=== PATIENT | female | born 1990 | race African-American/Black ===

== ENCOUNTER 2017-01-19 08:37 | Day surgery (SDC) | payer OTHER ==
[2017-01-19 09:38] LABS: PROTHROMBIN TIME 12.9 SEC (11.4-15.4)
[2017-01-19 09:39] LABS: PARTIAL THROMBOPLASTIN TIME 33.9 SEC (23.5-35.8)
--- NOTE | 2017-01-19 11:28 | RADIOLOGY REPORT (SQ) ---
EXAM DESCRIPTION: LUMBAR PUNCTURE; FLUORO/NEEDLE PLACEMENT/SPINE COMPLETED DATE/TIME: 01/19/2017 11:08 am REASON FOR STUDY: HEADACHE, BENIGN INTRACRANIAL HYPERTENSION R51 HEADACHE G93.2 BENIGN INTRACRANIA L HYPERTENSION COMPARISON: None. FLUOROSCOPY TIME: 37 seconds 2 images saved to PACS. TECHNIQUE: Fluoroscopic guided lumbar puncture. LIMITATIONS: None. PROCEDURE: After written consent and assessment were obtained, the patient was brought into the fluo roscopy room and placed prone on the table. The patient's lower back was prepped in a sterile fashio n and an entry site was selected under live fluoroscopic guidance. The entry site was anesthetized wi th 1% lidocaine. A 20 gauge gauge needle was advanced through the skin and into the thecal sac at the level of L3-L4. After approximately 11 ml was drained, the needle was removed and a sterile bandage was placed of the site. Specimens were sent to the lab for testing. A fluoroscopic spot image was s aved to PACS confirming level access. FINDINGS: Clear CSF. Opening pressure 29. Closing pressure 20. IMPRESSION: Lumbar puncture under fluoroscopy. No immediate complication. COMMENT: Patient medication list reviewed: Yes- Quality ID# [id number]:Eligible professional attests to doc umenting in the medical record they obtained, updated, or reviewed the patient's current medications. . Quality ID 145: Final reports for procedures using fluoroscopy that document radiation exposure mimi bryant, or exposure time and number of fluorographic images (if radiation exposure indices are not avail able) TECHNICAL DOCUMENTATION: JOB ID: [id number] [employer]- All Rights Reserved
[2017-01-19 12:11] LABS: APPEARANCE ALL TUBES CLEAR; RBC DILUENT USED NONE USED; RBC DILUTION FACTOR 1; RBC SIDE 1 0; RBC SIDE 2 0; TOTAL RBC SQUARES COUNTED 225
[2017-01-19 12:12] LABS: WHITE BLOOD CELL,CSF 0 /uL (0-5)
[2017-01-19 12:40] LABS: GLUCOSE,CSF 53 mg/dL (40-70)
[2017-01-19 14:33] VITALS: BP 116/69
[2017-01-20 15:39] LABS: ALBUMIN SERUM 4.1 g/dL (3.5-5.5); CSF IGG INDEX 0.5 (0.0-0.7); IGG SYNTHESIS RATE CSF -5.5 mg/day (-9.9 TO +3.3); IGG/ALBUMIN RATIO CSF 0.22 (0.00-0.25); IMMUNOGLOBULIN G CSF 2.2 mg/dL (0.0-8.6)
== END 2017-01-19 13:00 | disposition home or self-care (01) ==
LOC: RAD 08:37
PROVIDERS: ATTEND Specialist
PROC: 009U3ZX Drainage of Spinal Canal, Percutaneous Approach, Diagnostic (ICD-10-PCS; principal; 2017-01-19)
DX: G93.2 Benign intracranial hypertension (principal); F17.210 Nicotine dependence, cigarettes, uncomplicated
CPT/HCPCS: 36415; 62270; 77003; 82784; 82945; 84157; 85610; 85730; 87070; 87205; 89050

== ENCOUNTER 2018-06-19 08:56 | Emergency (ER) | payer MEDICAID ==
--- NOTE | 2018-06-19 10:36 | ER Document Report ---
ED Medical Screen (RME) - General Chief Complaint: Vag Bleeding, +preg <12wks Stated Complaint: VAGINAL BLEEDING Time Seen by Provider: 06/19/18 10:31 Primary Care Provider: STEFANO JAMIL MD [Primary Care Provider] - Follow up as needed Notes: 27-year-old female patient comes emergency room complaining of vaginal bleeding since with clots. She also reported rectal bleeding this morning. Last menstrual period was in February 2018. She did her first test only this past Thursday and it was positive. She would be A0. I have greeted and performed a rapid initial assessment of this patient. A comprehensive ED assessment and evaluation of the patient, analysis of test results and completion of the medical decision making process will be conducted by additional ED providers. TRAVEL OUTSIDE OF THE [place] IN LAST 30 DAYS: Yes - Related Data Allergies/Adverse Reactions: No Known Allergies Allergy (Unverified 03/09/13 09:43) Past Medical History - Past Medical History Cardiac Medical History: Denies: Hx Coronary Artery Disease, Hx Heart Attack, Hx Hypertension Pulmonary Medical History: Denies: Hx Asthma, Hx Bronchitis, Hx COPD, Hx Pneumonia Neurological Medical History: Denies: Hx Cerebrovascular Accident, Hx Seizures Musculoskeltal Medical History: Denies Hx Arthritis - Immunizations Hx Diphtheria, Pertussis, Tetanus Vaccination: Yes Physical Exam - Vital signs Vitals: Temp Pulse Resp BP Pulse Ox 98.9 F 102 H 16 144/98 H 97 06/19/18 09:03 06/19/18 09:03 06/19/18 09:03 06/19/18 09:03 06/19/18 09:03 Course - Vital Signs Vital signs: Temp Pulse Resp BP Pulse Ox 98.9 F 102 H 16 144/98 H 97 06/19/18 09:03 06/19/18 09:03 06/19/18 09:03 06/19/18 09:03 06/19/18 09:03 Doctor's Discharge - Discharge Referrals: STEFANO JAMIL MD [Primary Care Provider] - Follow up as needed
--- NOTE | 2018-06-19 11:27 | ER Document Report ---
ED GI/ - General Chief Complaint: Vag Bleeding, +preg <12wks Stated Complaint: VAGINAL BLEEDING Time Seen by Provider: 06/19/18 10:31 Primary Care Provider: STEFANO JAMIL MD [NO LOCAL MD] - Follow up as needed Information source: Patient Notes: Patient is a 27-year-old 001 at around 14 weeks by dates who presents today with the onset yesterday of some vaginal bleeding with small golf ball size blood clots. She denies any real pain or cramping. She denies any dysuria, fevers, or flank pain. No aggravating or relieving factors. TRAVEL OUTSIDE OF THE [place] IN LAST 30 DAYS: Yes - HPI Patient complains to provider of: Other - See above Onset: Other - See above Timing/Duration: Gradual Quality of pain: Other - See above Severity at maximum: Mild Severity in ED: None Pain Level: Denies Context: Other - See above Location: Other - See above Vaginal bleeding (Compared to normal period): Passing clots Menstrual period history: Sexual history: Active Associated symptoms: Other - See above Exacerbated by: Denies Relieved by: Denies Similar symptoms previously: No Recently seen / treated by doctor: Yes - Related Data Allergies/Adverse Reactions: No Known Allergies Allergy (Unverified 03/09/13 09:43) Past Medical History - Social History Smoking Status: Unknown if Ever Smoked Frequency of alcohol use: Occasional Family History: Reviewed & Not Pertinent Patient has suicidal ideation: No Patient has homicidal ideation: No - Past Medical History Cardiac Medical History: Denies: Hx Coronary Artery Disease, Hx Heart Attack, Hx Hypertension Pulmonary Medical History: Denies: Hx Asthma, Hx Bronchitis, Hx COPD, Hx Pneumonia Neurological Medical History: Denies: Hx Cerebrovascular Accident, Hx Seizures Renal/ Medical History: Denies: Hx Peritoneal Dialysis Musculoskeletal Medical History: Denies Hx Arthritis Past Surgical History: Reports: Hx Orthopedic Surgery - right leg - Immunizations Hx Diphtheria, Pertussis, Tetanus Vaccination: Yes Review of Systems - Review of Systems Constitutional: denies: Fever Cardiovascular: denies: Chest pain Respiratory: denies: Short of breath Gastrointestinal: denies: Diarrhea, Vomiting Genitourinary: denies: Dysuria Musculoskeletal: denies: Leg swelling Skin: denies: Rash Neurological/Psychological: Other - no slurred speech -: Yes All other systems reviewed and negative Physical Exam - Vital signs Vitals: Temp Pulse Resp BP Pulse Ox 98.9 F 102 H 16 144/98 H 97 06/19/18 09:03 06/19/18 09:03 06/19/18 09:03 06/19/18 09:03 06/19/18 09:03 Notes: Reviewed vital signs and nursing note as charted by RN. CONSTITUTIONAL: Alert and oriented and responds appropriately to questions. Well-appearing; well-nourished HEAD: Normocephalic; atraumatic NECK: Supple without meningismus; non-tender CARD: Regular rate and rhythm; no murmurs; symmetric distal pulses RESP: Normal chest excursion without splinting or tachypnea; breath sounds clear and equal bilaterally ABD/GI: Normal bowel sounds; very elevated BMI; soft, non-tender; no palpable organomegaly or fundus BACK: The back appears normal and is non-tender to palpation EXT: Normal ROM in all joints; non-tender to palpation; no edema SKIN: No acute lesions noted NEURO: CN 2-12 intact; 5/5 bilateral upper and lower extremity strength with sensation intact to light touch PSYCH: The patient's mood and manner are appropriate. Grooming and personal hygiene are appropriate. Course - Re-evaluation Re-evalutation: 06/19/18 11:27 Given the above history and physical we will obtain a CBC, quantitative hCG, a low gamma analysis and obtain a transvaginal ultrasound with pelvic examination. We would like to evaluate the possibility of a miscarriage, ectopic , or molar . 06/19/18 12:12 Patient still denies any pain. Vital signs are stable. Beta quant is 20. Patient is Rh+. 06/19/18 12:21 Pelvic examination shows no obvious external or internal lesions. Cervix is closed. No cervical motion tenderness. Minimal blood in the vaginal vault. 06/19/18 13:08 Pelvic labs as recorded. Trichomonas is seen. I had a long discussion with the patient about return precautions and no sexual activity until all partners have been treated. Patient understands to return in 72 hours to her primary care physician or here at this facility for repeat quantitative hCG as well as any abdominal pain or increased vaginal bleeding. - Vital Signs Vital signs: Temp Pulse Resp BP Pulse Ox 98.9 F 102 H 16 144/98 H 97 06/19/18 09:03 06/19/18 09:03 06/19/18 09:03 06/19/18 09:03 06/19/18 09:03 - Laboratory Result Diagrams: 06/19/18 10:40 06/19/18 10:40 Laboratory results interpreted by me: 06/19/18 06/19/18 10:40 10:40 Hgb 11.5 L Hct 35.4 L MCV 78 L MCH 25.3 L RDW 17.3 H AST 13 L Beta HCG, Quant 20.49 H Discharge - Discharge Clinical Impression: Vaginal bleeding in patient at less than 20 weeks gestation, Trichomonas vaginalis (TV) infection Condition: Good Disposition: HOME, SELF-CARE Additional Instructions: Come back immediately with any fevers, abdominal pain, vomiting, lightheadedness or dizziness, or any other acute problems. Do not engage in any sexual activity until both you and your partners have been completely treated. Please make sure that she follow-up in 72 hours for repeat quantitative hCG as we have discussed. Referrals: STEFANO JAMIL MD [NO LOCAL MD] - Follow up as needed
[2018-06-19 11:35] LABS: ABSOLUTE EOSINOPHILS # (AUTO) 0.1 10^3/uL (0.0-0.6); ABSOLUTE LYMPHOCYTES (AUTO) 1.7 10^3/uL (0.5-4.7); ABSOLUTE MONOCYTES (AUTO) 0.4 10^3/uL (0.1-1.4); ABSOLUTE NEUT (AUTO) 5.6 10^3/uL (1.7-8.2); BASOPHILS % (AUTO) 0.3 % (0-2); HEMATOCRIT 35.4 % (36.0-47.0); HEMOGLOBIN 11.5 g/dL (12.0-15.5); LYMPHOCYTES % (AUTO) 21.2 % (13-45); MEAN CORPUSCULAR HEMOGLOBIN 25.3 pg (27.0-33.4); MEAN CORPUSCULAR HGB CONC 32.5 g/dL (32.0-36.0); MEAN CORPUSCULAR VOLUME 78 fl (80-97); MONOCYTES % (AUTO) 5.3 % (3-13); PLATELET COUNT 354 10^3/uL (150-450); RED BLOOD COUNT 4.55 10^6/uL (3.72-5.28); RED CELL DISTRIBUTION WIDTH 17.3 % (11.5-14.0); SEGMENTED NEUTROPHILS % (AUTO) 72.2 % (42-78); TOTAL CELLS COUNTED % (AUTO) 100 %; WHITE BLOOD COUNT 7.8 10^3/uL (4.0-10.5)
[2018-06-19 11:49] LABS: ALANINE AMINOTRANSFERASE 11 U/L (9-52); ALBUMIN 4.4 g/dL (3.5-5.0); ALKALINE PHOSPHATASE 77 U/L (38-126); ANION GAP 5 (5-19); ASPARTATE AMINO TRANSFERASE 13 U/L (14-36); BILIRUBIN,DIRECT 0.3 mg/dL (0.0-0.4); BILIRUBIN,TOTAL 0.4 mg/dL (0.2-1.3); BLOOD UREA NITROGEN 11 mg/dL (7-20); CALCIUM 8.9 mg/dL (8.4-10.2); CARBON DIOXIDE 30 mmol/L (22-30); CHLORIDE 104 mmol/L (98-107); GLUCOSE 84 mg/dL (75-110); POTASSIUM 4.4 mmol/L (3.6-5.0); SODIUM 139.3 mmol/L (137-145); TOTAL PROTEIN 7.7 g/dL (6.3-8.2)
--- NOTE | 2018-06-19 12:09 | RADIOLOGY REPORT (SQ) ---
EXAM DESCRIPTION: U/S OB TRANSVAGINAL W/O DOP COMPLETED DATE/TIME: 06/19/2018 11:18 am REASON FOR STUDY: vag bleeding, LMP OCT, +HCG 3 days ago COMPARISON: None. TECHNIQUE: Transvaginal static and realtime grayscale images acquired of the pelvis. All images stor ed on PACs. BHCG: Pending. LIMITATIONS: None. FINDINGS: UTERUS: The uterus measures 8.8 x 3.7 x 4.6 cm. The endometrium measures 6 mm in double w all thickness. No visualized intrauterine . The cervix measures 2.9 cm in length and it is closed. Nabothian cysts noted at the cervix. RIGHT ADNEXA: The ovary was not visualized, obscured by overlying bowel gas. LEFT ADNEXA: The ovary was not visualized, obscured by overlying bowel gas. FREE FLUID: None visualized. IMPRESSION: NO VISUALIZED INTRA- OR EXTRAUTERINE . ECTOPIC CANNOT BE EXCLUDED. FOLLOW-UP ULTRASOUND AND SERIAL BHCG LEVELS STRONGLY RECOMMENDED TO ACCURATELY ASSESS STATU S. TECHNICAL DOCUMENTATION: JOB ID: [id number] 2010 [employer]- All Rights Reserved Reading location - IP/workstation name: [email or web address]
[2018-06-19 12:41] LABS: BACTERIA (WET MOUNT) 4+ BACTERIA SEEN; EPITHELIALS (WET MOUNT) 3+ EPITHELIALS SEEN; RBCS (WET MOUNT) 4+ RBCS SEEN; T.VAGINALIS (WET MOUNT) TRICHOMONAS SEEN; WBCS (WET MOUNT) 2+ WBCS SEEN; YEAST (WET MOUNT) NO YEAST SEEN
[2018-06-19] MEDS ORDERED: LIDOCAINE 1% INJ-PF (10 MG/ML) 30 ML SDV NEB ONE (13:08)
[2018-06-19] MEDS ORDERED: AZITHROMYCIN 1 GM SUSP PACKET PO ONE (13:08)
[2018-06-19] MEDS ORDERED: METRONIDAZOLE 500 MG TABLET PO ONE (13:08)
[2018-06-19] MEDS ORDERED: CEFTRIAXONE INJ 250 MG VIAL IM ONE (13:08)
[2018-06-19 14:12] LABS: CHLAM PCR NOT DETECTED (NOT DETECT); GON PCR NOT DETECTED (NOT DETECT)
[2018-06-19 14:39] VITALS: BP 132/76
== END 2018-06-19 14:43 | disposition home or self-care (01) ==
LOC: ER 08:56
DX: O20.9 Hemorrhage in early pregnancy, unspecified (principal); O98.319 Other infections with a predominantly sexual mode of transmission complicating pregnancy, unspecified trimester; A59.01 Trichomonal vulvovaginitis; Z3A.00 Weeks of gestation of pregnancy not specified
CPT/HCPCS: 94640; 99284; 96372; 86900; 86901; 36415; 87210; 84702; 85025; 80053; 87491; 87591; 76817; J3490 ×2; Q0144; J0696